=== PATIENT | male | born 1990 | race Caucasian/White ===

== ENCOUNTER 2017-02-23 13:23 | Emergency (ER) | payer MEDICAID ==
[~2017-02-23] VITALS: Ht 188 cm; Wt 106.6 kg
[2017-02-23 14:31] LABS: Basophils # (auto) 0 uL; Basophils % (auto) 0.3 % (0.0-2.0); Eosinophils # (auto) 0.3 uL; Eosinophils % (auto) 2.3 % (0.0-7.0); Hematocrit 42.1 % (41.0-53.0); Hemoglobin 14.2 g/dL (13.5-17.5); Lymphocytes # (auto) 1.5 uL; Lymphocytes % (auto) 11.9 % (10.0-50.0); Mean Corpuscular Hemoglobin 31.3 pg (28.0-32.0); Mean Corpuscular Hgb Conc. 33.8 g/dL (32.0-36.0); Mean Corpuscular Volume 92.4 fL (80.0-100.0); Mean Platelet Volume 7.9 fL (7.4-10.4); Monocytes # (auto) 1.1 uL; Monocytes % (auto) 8.8 % (0.0-12.0); Neutrophils # (auto) 9.5 uL; Neutrophils % (auto) 76.7 % (37.0-80.0); Platelet Count (auto) 233 10^3/uL (140-450); Red Cell Distribution Width 12.8 % (11.6-16.0); White Blood Cell 12.4 10^3/uL (4.4-10.8)
[2017-02-23 14:50] LABS: Albumin 3.9 g/dL (3.4-5.0); BUN/Creatinine Ratio 12.9; Calcium 8.4 mg/dL (8.5-10.1); Total Protein 7.3 g/dL (6.4-8.2)
[2017-02-23] MEDS ORDERED: cefTRIAXone W LIDOCAINE 1 GM IM IM ONE (16:15)
[2017-02-23] MEDS ORDERED: LIDOCAINE 1% HCL (LOCAL ANESTH.) INJ 20ML MDV ONE (16:34)
[2017-02-23] MEDS ORDERED: cefTRIAXone SOD 1,000 MG VL ONE (16:34)
[2017-02-23] MEDS ORDERED: cefTRIAXone SOD 1,000 MG VL IM ONE (16:45)
[2017-02-23] MEDS ORDERED: LIDOCAINE 1% HCL (LOCAL ANESTH.) INJ 20ML MDV IJ ONE (16:45)
[2017-02-23 17:02] VITALS: BP 115/62
== END 2017-02-23 17:08 | disposition home or self-care (01) ==
LOC: ER 13:30
DX: L03.115 Cellulitis of right lower limb (principal); F17.210 Nicotine dependence, cigarettes, uncomplicated
CPT/HCPCS: 36415; 80053; 85025; 87040; 96372; 99284; J0696; J2001